=== PATIENT | male | born 1960 | race Two or more races ===

== ENCOUNTER 2022-10-02 16:07 | Outpatient (CLI) | payer OTHER | END 2022-10-02 16:08 | disposition home or self-care (01) | LOC: LAB 16:07 | PROVIDERS: ATTEND Urology | DX: R97.20 Elevated prostate specific antigen [PSA] (principal) ==

== ENCOUNTER 2022-11-09 07:35 | Outpatient (CLI) | payer OTHER | END 2022-11-09 07:49 | disposition home or self-care (01) | LOC: SONOGRAMA 07:35 | PROVIDERS: ATTEND Urology | DX: D29.1 Benign neoplasm of prostate (principal); N41.1 Chronic prostatitis; R97.20 Elevated prostate specific antigen [PSA] ==